=== PATIENT | female | born 1945 | race Native Hawaiian/Other Pacific Islander ===

== ENCOUNTER → 2018-09-27 | Outpatient (CLI) | payer MEDICARE, OTHER ==
--- NOTE | 2018-09-28 07:52 | BD ---
EXAMINATION TYPE: Axial Bone Density DATE OF EXAM: 09/27/2018 COMPARISON: 09.09.2004 CLINICAL HISTORY: 73 YR OLD FEMALE....ICD-10 CODE: E55.9 VIT D DEFF, M85.9 DISORDER OF BONE Height: 57.6 Weight: 164 FRAX RISK QUESTIONS: Glucocorticoids (More than 3mos): YES (Ex: prednisone, prednisolone, methylprednisolone, dexamethasone, and hydrocortisone). History of Fracture in Adulthood: YES Rheumatoid Arthritis: YES RISK FACTORS HISTORY OF: HX OF RT SHOULDER FRACTURE, AND SURGERY ON THE RIGHT SHOULDER When: > 50 YRS OF AGE Active: YES Postmenopausal woman: AT 52 Take estrogen and/or progesterone medications: ON HORMONES FOR ABOUT 7 YRS IN PAST, NONE NOW Lost more than 2 inches in height since high school: YES MEDICATIONS: Prednisone or other steroids: STERIODAL EYE DROPS THIS YR Additional Medications: BP MEDS, METHOTREXATE, NSAIDS, AUTOLET Additional History: HYPERTENSION, RA EXAM MEASUREMENTS: Bone mineral densitometry was performed using the [employer] System. Bone mineral density as measured about the Lumbar spine is: ----- L1-L4(G/cm2): 0.903 T Score Values are as follows: ----- L1: -2.6 ----- L2: -2.6 ----- L3: -2.3 ----- L4: -1.9 ----- L1-L4: -2.3 Bone mineral density has: Decreased -1.1% since study of: 09.09.2004 Bone mineral density about the R hip (g/cm2): 0.816 Bone mineral density about the L hip (g/cm2): 0.766 T Score values are as follows: -----R Neck: -2.4 -----L Neck: -2.9 -----R Total: -1.5 -----L Total: -1.9 Bone mineral density has: Decreased -7.5% since study of: 09.09.2004 FRAX%s: THERE IS A 31.1% CHANCE FOR A MAJOR OSTEOPOROTIC FX AND A 12.9% FOR HIP.....PROBABILITY FOR FX IN 10 YRS TIME IMPRESSION: Osteoporosis (T Score less than -2.5). There is increased fracture risk and therapy is usually indicated based on age. Re-Screen 1-2 years. NOTE: T-SCORE=SD OF THE YOUNG ADULT MEAN.
--- NOTE | 2018-10-01 09:47 | MM ---
Reason for exam: screening (asymptomatic). Last mammogram was performed 14 years and 1 month ago. History: Patient is postmenopausal. Family history of breast cancer in maternal cousin. Excisional biopsy of the left breast, 1995. Excisional biopsy of the right breast, 1987. Took hormonal contraceptives for 20 years beginning at age 25. Taking estrogen for 11 years beginning at age 48. Physical Findings: A clinical breast exam by your physician is recommended on an annual basis and results should be correlated with mammographic findings. MG 3D Screening Mammo W/Cad Bilateral CC and MLO view(s) were taken. Prior study comparison: September 09, 2004, bilateral screening mammogram w/CAD. December 02, 1998, left breast special view mammogram. The breast tissue is heterogeneously dense. This may lower the sensitivity of mammography. There are three groups of calcifications in the upper outer quadrant of the right breast at middle and posterior depth in dense tissue. Magnification views recommended. Left retroareolar distortion CC 10/60 possible because the nipple is not in profile. This is on MLO 3D 18/. ASSESSMENT: Incomplete: need additional imaging evaluation, BI-RAD 0 RECOMMENDATION: Special view mammogram of both breasts. If lesion persists on supplemental views, image directed ultrasound is recommended. [facility] will attempt to contact patient to return for supplemental views and ultrasound if indicated.
== END | disposition home or self-care (01) ==
LOC: RADMAMWWP 15:12
PROVIDERS: ATTEND Family Medicine
DX: Z12.31 Encounter for screening mammogram for malignant neoplasm of breast (principal); M81.0 Age-related osteoporosis without current pathological fracture; E55.9 Vitamin D deficiency, unspecified
CPT/HCPCS: 77063; 77067; 77080

== ENCOUNTER → 2018-10-15 | Outpatient (CLI) | payer MEDICARE, OTHER ==
--- NOTE | 2018-10-17 09:21 | MM ---
Reason for exam: additional evaluation requested from abnormal screening. Last mammogram was performed 1 month ago. History: Patient is postmenopausal. Family history of breast cancer in maternal cousin. Excisional biopsy of the left breast, 1995. Excisional biopsy of the right breast, 1987. Took hormonal contraceptives for 20 years beginning at age 25. Taking estrogen for 11 years beginning at age 48. Physical Findings: Nurse did not find any significant physical abnormalities on exam. MG 3D Work Up W/Cad [place] Bilateral ML view(s) were taken. CC with magnification and ML with magnification view(s) were taken of the right breast. Spot compression CC and spot compression MLO view(s) were taken of the left breast. Prior study comparison: September 27, 2018, bilateral MG 3d screening mammo w/cad. September 09, 2004, bilateral screening mammogram w/CAD. The breast tissue is heterogeneously dense. This may lower the sensitivity of mammography. There are regional right upper outer quadrant calcifications spanning 5.1cm within dense breast tissue. Biopsy recommended of the most suspicious posterior aspect. Retroareolar distortion relates to a benign excisional biopsy, post biopsy changes. These results were verbally communicated with the patient and result sheet given to the patient on 10/15/18. ASSESSMENT: Suspicious, BI-RAD 4 RECOMMENDATION: Stereotactic core biopsy of the right breast. Called with mammographic findings and has scheduled an appointment for the patient for 10/17/18 at 4:[address] Ku. PRELIMINARY REPORT CALLED AND FAXED TO DR. KU ON 10/17/18.
== END | disposition home or self-care (01) ==
LOC: RADMAMWWP 14:48
PROVIDERS: ATTEND Family Medicine
DX: R92.8 Other abnormal and inconclusive findings on diagnostic imaging of breast (principal)
CPT/HCPCS: 77066; G0279; 77062

== ENCOUNTER → 2021-03-11 | Outpatient (CLI) | payer MEDICARE, OTHER ==
--- NOTE | 2021-03-11 12:56 | ECHOF ---
Referral Reason:R00.2 palpitations MEASUREMENTS -------- HEIGHT: 152.4 cm WEIGHT: 73.5 kg BP: RVIDd: 2.1 cm (< 3.3) IVSd: 1.1 cm (0.6 - 1.1) LVIDd: 4.0 cm (3.9 - 5.3) LVPWd: 0.8 cm (0.6 - 1.1) IVSs: 1.3 cm LVIDs: 2.2 cm LVPWs: 1.7 cm LAESV Index (A-L): 18.85 ml/m Ao Diam: 2.7 cm (2.0 - 3.7) AV Cusp: 1.6 cm (1.5 - 2.6) LA Diam: 2.9 cm (2.7 - 3.8) MV EXCURSION: 13.818 mm (> 18.000) MV EF SLOPE: 53 mm/s (70 - 150) EPSS: 0.3 cm MV E Oswaldo: 0.37 m/s MV DecT: 304 ms MV A Oswaldo: 0.75 m/s MV E/A Ratio: 0.50 RAP: 5.00 mmHg RVSP: 22.71 mmHg FINDINGS -------- Sinus rhythm. This was a technically good study. LV size, wall thickness and systolic function are normal, with an EF greater than 55%. The left hitesh tricular size is normal. The right ventricle is normal in size. Normal LA size by volume 22+/-6 ml/m2. The right atrial size is normal. The aortic valve is trileaflet, and appears structurally normal. No aortic stenosis or regurgitation. Mild mitral regurgitation is present. Mild tricuspid regurgitation present. Right ventricular systolic pressure is normal at < 35 mmHg. The pulmonic valve was not well visualized. Echo free space represents a pericardial fat pad. CONCLUSIONS -------- 1. LV size, wall thickness and systolic function are normal, with an EF greater than 55%. 2. The left ventricular size is normal. 3. The right ventricle is normal in size. 4. Normal LA size by volume 22+/-6 ml/m2. 5. The right atrial size is normal. 6. The aortic valve is trileaflet, and appears structurally normal. No aortic stenosis or regurgitati on. 7. Mild mitral regurgitation is present. 8. Mild tricuspid regurgitation present. 9. The pulmonic valve was not well visualized. 10. Echo free space represents a pericardial fat pad. HEALTH SCIENCE INSTRUCTOR: Nicolle Manning RDCS
--- NOTE | 2021-03-19 12:10 | P.HOLTER ---
48 hour Holter monitor shows sinus rhythm with a very brief run of nonsustained atrial tachycardia Sinus tachycardia No bradycardia no sustained arrhythmias Average heart rates 82 beats a minute Heart rates ranged from 60 to-120 beats a minute
== END | disposition home or self-care (01) ==
LOC: RADECHMAIN 11:27
PROVIDERS: ATTEND Family Medicine
DX: I08.1 Rheumatic disorders of both mitral and tricuspid valves (principal)
CPT/HCPCS: 93225; 93226; 93306